=== PATIENT | male | born 1965 | race Caucasian/White ===

== ENCOUNTER 2020-10-13 09:10 | Outpatient (CLI) | payer MEDICARE, MEDICAID, SELFPAY | END 2020-10-13 09:11 | disposition home or self-care (01) | LOC: ANHBWCAUD 09:11 | DX: H91.93 Unspecified hearing loss, bilateral (principal) | CPT/HCPCS: 92553; 92555; 92567 ==

== ENCOUNTER 2023-10-21 08:26 | Outpatient (CLI) | payer MEDICARE, MEDICAID, SELFPAY | END 2023-10-21 08:27 | disposition home or self-care (01) | LOC: ANHBWCAUD 08:26 | DX: H90.3 Sensorineural hearing loss, bilateral (principal) | CPT/HCPCS: 92553; 92555; 92567 ==